=== PATIENT | male | born 2005 | race Two or more races ===

== ENCOUNTER 2023-10-22 19:55 | Emergency (ER) | payer OTHER ==
[~2023-10-22] VITALS: Ht 180.3 cm; Wt 144.5 kg
[2023-10-22 20:30] VITALS: BP 118/89; PULSE 83; TEMP 98.6
[2023-10-22 20:45] VITALS: RESP 18; O2SAT 95
[2023-10-22] MEDS ORDERED: IBUP-1456 PO (21:18)
== END 2023-10-22 22:55 | disposition home or self-care (01) ==
LOC: ER 19:55
DX: S23.41XA Sprain of ribs, initial encounter (principal); W01.0XXA Fall on same level from slipping, tripping and stumbling without subsequent striking against object, initial encounter; Y93.89 Activity, other specified; Y92.69 Other specified industrial and construction area as the place of occurrence of the external cause; Y99.8 Other external cause status
CPT/HCPCS: 71250

== ENCOUNTER 2023-12-12 16:32 | Emergency (ER) | payer OTHER ==
[~2023-12-12] VITALS: Ht 180.3 cm; Wt 141.8 kg
[~2023-12-12 16:32] MED LIST: IBUP-1456 PO
[2023-12-12] MEDS: IBUPROFEN 600 MG TAB PO ONE (18:36)
[2023-12-12 18:59] VITALS: PULSE 72; RESP 18
[2023-12-12 19:00] VITALS: BP 120/69; PULSE 72; RESP 18; O2SAT 98
== END 2023-12-12 19:01 | disposition home or self-care (01) ==
LOC: ER 16:32
DX: S20.212A Contusion of left front wall of thorax, initial encounter (principal); W51.XXXA Accidental striking against or bumped into by another person, initial encounter; Y93.89 Activity, other specified; Y92.69 Other specified industrial and construction area as the place of occurrence of the external cause; Y99.8 Other external cause status
CPT/HCPCS: 71101